=== PATIENT | female | born 1960 | race Caucasian/White ===

== ENCOUNTER → 2016-12-24 | Outpatient (CLI) | payer OTHER ==
[~2016-12-24] MED LIST: CITALOPRAM HBR10 MG PO; DEPAKOTE500 MG PO; FENOFIBRATE160 M1 PO; KLONOPIN0.5 M1 PO; LISINOPRIL20 MG PO; LOMOTIL TABLET1 EACH PO; METOPROLOL TART25 MG PO; PRAVASTATIN SOD40 MG PO; TRAZODONE HCL100 MG PO; VIIBRYD40 MG PO; ZOLPIDEM TARTRAT5 MG PO; depakote PO
== END | disposition home or self-care (01) ==
LOC: RAD 14:15
DX: R93.6 Abnormal findings on diagnostic imaging of limbs (principal)
CPT/HCPCS: 73030

== ENCOUNTER 2017-01-11 18:08 | Inpatient (IN) | payer OTHER ==
[~2017-01-11] VITALS: Ht 167.6 cm; Wt 68.0 kg
[2017-01-11 21:20] LABS: EOSINOPHIL (%) 0.6 % (0-5); IMMATURE GRANULOCYTE (%) 0.3 % (0.0-0.7); INSTRUMENT ABS NEUTROPHIL CT 4.2 K/uL; LYMPHOCYTE COUNT 2.1 K/uL (1.0-2.8); MCH 28.4 PG (29.0-34.0); MCHC 31.6 G/DL (30.0-36.0); MCV 89.8 FL (83-99); MONOCYTE (%) 7.7 % (3-12); MONOCYTE COUNT 0.5 K/uL (0-0.8); NEUTROPHIL (%) 60.5 % (45-76); NEUTROPHIL COUNT 4.2 K/uL (1.8-6.4); PLATELET COUNT 208 K/uL (156-360); RBC DIS.WIDTH-CV 13.2 % (11.8-14.6); RBC DIS.WIDTH-SD 43.5 % (39-53); RED BLOOD COUNT 4.79 M/uL (3.80-5.20)
[2017-01-11 21:28] LABS: CHLORIDE 108 mEq/L (99-109); POTASSIUM 4.2 mEq/L (3.7-5.4); SODIUM 144 mEq/L (136-147)
[2017-01-11 21:30] LABS: GLUCOSE 88 mg/dL (70-99)
[2017-01-11 21:31] LABS: ANION GAP 7 MEQ/L (2-14)
[2017-01-11 21:33] LABS: SERUM ETHYL ALCOHOL < 10 mg/dL
[2017-01-11 21:34] LABS: GFR ESTIMATE (CALCULATED) > 59 mL/min/
[2017-01-11 21:35] LABS: UREA NITROGEN (BUN) 24 mg/dL (9-23)
[2017-01-11 21:54] LABS: AMPHETAMINE NEGATIVE (500 ng/mL); BARBITURATES NEGATIVE (200 ng/mL); BENZODIAZEPINES NEGATIVE (150 ng/mL); COCAINE NEGATIVE (150 ng/mL); INTERNAL CONTROLS VALID? YES; METHADONE NEGATIVE (200 ng/mL); METHAMPHETAMINE NEGATIVE (500 ng/mL); OPIATES (MORPHINE) NEGATIVE (100 ng/mL); OXYCODONE NEGATIVE (100 ng/mL); PHENCYCLIDINE NEGATIVE (25 ng/mL); PROPOXYPHENE NEGATIVE (300 ng/mL); THC CANNABINOIDS NEGATIVE (50 ng/mL); TRICYCLIC ANTIDEPRESSANTS NEGATIVE (300 ng/mL)
[2017-01-11] MEDS ORDERED: LISINOPRIL30 MG PO (22:24)
[2017-01-11] MEDS ORDERED: DIVALPROEX SOD125 MG PO (22:26)
[2017-01-11] MEDS ORDERED: MELATIN3 MG PO (22:26)
[2017-01-11] MEDS ORDERED: LUNESTA1 MG PO (22:27)
[2017-01-11] MEDS ORDERED: DESYREL 150 MG150 MG PO (22:27)
[2017-01-11] MEDS ORDERED: VIIBRYD40 MG PO (22:28)
[2017-01-11] MEDS ORDERED: VITAMIN D35000 UNIT PO (22:29)
[2017-01-11 23:49] VITALS: BP 182/98
[2017-01-12 07:08] VITALS: BP 124/82
[2017-01-12 15:42] VITALS: BP 142/69
[2017-01-13 07:26] VITALS: BP 128/64
[2017-01-13] MEDS ORDERED: DIVALPROEX SOD125 MG PO (09:38)
== END 2017-01-13 13:40 | disposition home or self-care (01) | DRG 881 ==
LOC: EME 18:08 → 1WEST 21:54 → EDOF 21:54 → 1WEST 23:25
PROVIDERS: Emergency Medicine
DX: F32.9 Major depressive disorder, single episode, unspecified (principal); F60.3 Borderline personality disorder; R45.851 Suicidal ideations; E11.9 Type 2 diabetes mellitus without complications; G43.909 Migraine, unspecified, not intractable, without status migrainosus; E78.5 Hyperlipidemia, unspecified; I10 Essential (primary) hypertension; F17.200 Nicotine dependence, unspecified, uncomplicated; M19.90 Unspecified osteoarthritis, unspecified site
CPT/HCPCS: 80048; 85025; 87493; 90839; 97166 GO; 99281; 99285; G0480

== ENCOUNTER → 2017-03-21 | Outpatient (CLI) | payer OTHER ==
[~2017-03-21] MED LIST changes: +DESYREL 150 MG150 MG PO; +DIVALPROEX SOD125 MG PO; +LISINOPRIL30 MG PO; +LUNESTA1 MG PO; +MELATIN3 MG PO; +VITAMIN D35000 UNIT PO
== END | disposition home or self-care (01) ==
LOC: RAD 08:51
DX: M51.36 Other intervertebral disc degeneration, lumbar region (principal)
CPT/HCPCS: 72100